=== PATIENT | female | born 1975 | race African-American/Black ===

== ENCOUNTER 2017-03-11 22:17 | Emergency (ER) | payer OTHER ==
[~2017-03-11] VITALS: Ht 170.2 cm; Wt 69.8 kg
[~2017-03-11 22:17] MED LIST: AZITHROMYCIN 2250 MG PO; LORTABELXR PO; PERCOCET 5-3251 EACH PO; PROTONIX40 MG PO; ULTRAM 50MG TAB50 MG PO; ZOFRAN4 MG PO
[2017-03-12] MEDS ORDERED: ULTRAM 50MG TAB50 MG PO (00:43)
== END 2017-03-12 01:06 | disposition home or self-care (01) ==
LOC: ER 22:17
DX: S61.112A Laceration without foreign body of left thumb with damage to nail, initial encounter (principal); Z88.0 Allergy status to penicillin; Z91.040 Latex allergy status; F17.210 Nicotine dependence, cigarettes, uncomplicated; W26.8XXA Contact with other sharp object(s), not elsewhere classified, initial encounter; Y93.89 Activity, other specified; Y92.89 Other specified places as the place of occurrence of the external cause; Y99.8 Other external cause status

== ENCOUNTER 2018-11-30 22:58 | Emergency (ER) | payer OTHER ==
[~2018-11-30] VITALS: Ht 165.1 cm; Wt 63.5 kg
[2018-12-01 01:21] LABS: ANION GAP 14 mmol/L (7-16); BUN 4 mg/dL (7-18); CALCIUM 8.2 mg/dL (8.5-10.1); CHLORIDE 105 mmol/L (98-107); CO2 22 mmol/L (21-32); CREATININE 0.6 mg/dL (0.6-1.0); GLUCOSE 83 mg/dL (74-106); POTASSIUM 3.2 mmol/L (3.5-5.1); SODIUM 141 mmol/L (136-145)
[2018-12-01 01:28] LABS: SALICYLATE 2.7 mg/dL (2.8-20.0); SGOT 57 U/L (15-37); SGPT 28 U/L (30-65); TOTAL BILIRUBIN 0.3 mg/dL (<0.1-1.0); TOTAL PROTEIN 6.8 g/dL (6.4-8.2)
[2018-12-01 01:43] LABS: URINE BILIRUBIN NEGATIVE (Negative); URINE BLOOD 1+ (Negative); URINE CLARITY CLEAR; URINE COLOR YELLOW; URINE GLUCOSE-RANDOM* NEGATIVE (Negative); URINE KETONES TRACE (Negative); URINE LEUKOCYTES-REFLEX TRACE (Negative); URINE NITRITE-REFLEX NEGATIVE (Negative); URINE PROTEIN (DIPSTICK) NEGATIVE (Negative); URINE SPECIFIC GRAVITY <= 1.005 (1.005-1.035); URINE UROBILINOGEN 0.2 E.U./dl (0.2-1.0)
[2018-12-01 01:48] LABS: AMP/METHAMP Negative (Negative); BARBITURATES Negative (Negative); BENZODIAZEPINES Negative (Negative); COCAINE Negative (Negative); METHADONE Negative (Negative); OPIATES Negative (Negative); PCP Negative (Negative)
[2018-12-01 01:57] LABS: ABSOLUTE NEUTROPHILS 2.4 thou/uL (1.4-8.2); BASOPHILS 0.7 % (0.0-2.0); EOSINOPHILS 0.6 % (0.0-3.0); HEMATOCRIT 36.4 % (37.0-47.0); MCH 36.4 pg (26.0-34.0); MCHC 32.9 g/dL (28.0-37.0); MCV 110.3 fL (80.0-100.0); MONOCYTES 6.9 % (1.0-8.0); PLATELET COUNT 207 thou/uL (150-400); POLYS 56.8 % (36.0-66.0); RDW 16.7 % (10.5-14.5); WBC 4.3 thou/uL (4.0-11.0)
[2018-12-01 02:43] LABS: BACTERIA-REFLEX None Seen /HPF (None Seen); CASTS None Seen /LPF (None Seen); CRYSTALS None Seen /LPF (None Seen); MUCUS 0-3 Light strn/LPF (None Seen); SQUAMOUS 0-3 Few /LPF (0-3); URINE RBC 3-10 Few /HPF (0-2); URINE WBC-REFLEX None Seen /HPF (0-5)
[2018-12-01 06:29] VITALS: BP 97/60
== END 2018-12-01 06:29 | disposition home or self-care (01) ==
LOC: ER 22:58
PROVIDERS: Emergency Medicine
DX: R45.851 Suicidal ideations (principal); F10.129 Alcohol abuse with intoxication, unspecified; F17.210 Nicotine dependence, cigarettes, uncomplicated; Z98.890 Other specified postprocedural states; Z91.040 Latex allergy status; Z88.0 Allergy status to penicillin; Y90.8 Blood alcohol level of 240 mg/100 ml or more; Y07.01 Husband, perpetrator of maltreatment and neglect

== ENCOUNTER 2020-10-19 16:40 | Emergency (ER) | payer OTHER ==
[~2020-10-19] VITALS: Ht 165.1 cm; Wt 68.0 kg
[2020-10-19 16:48] VITALS: BP 114/83
[2020-10-19] MEDS ORDERED: ZANAFLEX4 MG PO (19:54)
[2020-10-19] MEDS ORDERED: MOBIC7.5 MG PO (19:54)
== END 2020-10-19 20:00 | disposition home or self-care (01) ==
LOC: ER 16:40
DX: M54.2 Cervicalgia (principal); R51.9 Headache, unspecified; F17.210 Nicotine dependence, cigarettes, uncomplicated; Z88.0 Allergy status to penicillin; Z91.040 Latex allergy status; Z91.041 Radiographic dye allergy status; W19.XXXA Unspecified fall, initial encounter; Y93.89 Activity, other specified; Y92.89 Other specified places as the place of occurrence of the external cause; Y99.8 Other external cause status

== ENCOUNTER 2020-10-24 21:11 | Emergency (ER) | payer OTHER ==
[~2020-10-24] VITALS: Ht 167.6 cm; Wt 68.0 kg
[~2020-10-24 21:11] MED LIST changes: +MOBIC7.5 MG PO; +ZANAFLEX4 MG PO
[2020-10-24 22:11] LABS: HEMATOCRIT 38.6 % (37.0-47.0); HEMOGLOBIN 12.7 gm/dL (12.0-15.0); MCH 36.7 pg (26.0-34.0); MCHC 32.8 g/dL (28.0-37.0); MCV 111.8 fL (80.0-100.0); RBC 3.45 mil/uL (4.20-5.00); RDW 17.5 % (10.5-14.5); WBC 6.5 thou/uL (4.0-11.0)
[2020-10-24 22:18] LABS: CALCIUM 8.7 mg/dL (8.5-10.1); CREATININE 0.8 mg/dL (0.6-1.0)
[2020-10-24 22:20] LABS: URINE BILIRUBIN NEGATIVE (Negative); URINE BLOOD 2+ (Negative); URINE CLARITY CLEAR; URINE COLOR YELLOW; URINE GLUCOSE-RANDOM* NEGATIVE (Negative); URINE KETONES 2+ (Negative); URINE LEUKOCYTES-REFLEX NEGATIVE (Negative); URINE NITRITE-REFLEX NEGATIVE (Negative); URINE PROTEIN (DIPSTICK) NEGATIVE (Negative)
[2020-10-24 22:27] LABS: POTASSIUM 2.7 mmol/L (3.5-5.1)
[2020-10-24 22:28] LABS: SQUAMOUS >10 Many /LPF (0-3)
[2020-10-24 22:29] LABS: BACTERIA-REFLEX 1-9 Few /HPF (None Seen); CASTS None Seen /LPF (None Seen); CRYSTALS None Seen /LPF (None Seen); URINE RBC 3-10 Few /HPF (NONE SEEN); URINE WBC-REFLEX 0-5 Rare /HPF (0-5)
[2020-10-25 01:41] LABS: CALCIUM 7.9 mg/dL (8.5-10.1); CREATININE 0.7 mg/dL (0.6-1.0); POTASSIUM 3.3 mmol/L (3.5-5.1)
[2020-10-25 03:13] VITALS: BP 102/65
--- NOTE | 2020-10-25 12:56 | EKG ---
[place] [address] [facility] [facility] [place] [address] ELECTROCARDIOGRAM REPORT Name: MEGHAN PRADO Room #: [facility]P [facility] [id number] Admission: 10/24/20 Attend Phys: Discharge: 10/25/20 Date of : 79 Report #: [id number] [facility] ED Test Date: 2020-10-24 Test Time: 22:33:02 Pat Name: MEGHAN PRADO Department: Room: Gender: F Waiter/Waitress Economy Class: PASCUAL : 1975 Requested By: Arturo Bbab Order Number: [id number] MD: Eber Barnes Measurements Intervals [place] Rate: 100 P: -41 TX: 118 QRS: 46 QRSD: 96 T: 35 QT: 370 QTc: 478 Interpretive Statements Sinus tachycardia Borderline prolonged QT interval Compared to ECG 08/06/2009 17:45:10 No significant changes found Electronically Signed On 10-25-2020 12:55:46 CDT by Eber Barnes [email or web address] <ELECTRONICALLY SIGNED> By: Eber Barnes MD, [facility] 10/25/20 [id number] Eber Barnes MD, FACC /EPI
== END 2020-10-25 03:14 | disposition home or self-care (01) ==
LOC: ER 21:11
PROVIDERS: Student in an Organized Health Care Education/Training Program
DX: E87.6 Hypokalemia (principal); R53.83 Other fatigue; F17.210 Nicotine dependence, cigarettes, uncomplicated; Z88.0 Allergy status to penicillin; Z91.041 Radiographic dye allergy status; Z91.040 Latex allergy status